=== PATIENT | female | born 1950 | race Caucasian/White ===

== ENCOUNTER 2019-03-29 09:52 | Day surgery (SDC) | payer MEDICAID, MEDICARE ==
[~2019-03-29] VITALS: Ht 177.8 cm; Wt 89.4 kg
[~2019-03-29 09:52] MED LIST: AMLO10TA5 PO; ASPI81TA21 PO; CLOP75TA2 PO; CVS1CAP2 PO; DULO30CA9 PO; HYDR50TA70 PO; LIDOCAINE 1% MDV 20ML VIAL SQ PRN; MECL1CHW PO; REME15TA2 PO; ROSU40TA3 PO; SYMB16INH INH; TEMA30CA PO; TRAM50TA2 PO; WELLTAB38 PO
[2019-03-29] MEDS ORDERED: LR 1,000 ML IV ONE (10:00)
[2019-03-29] MEDS ORDERED: SCOPOLAMINE 1MG TRANSDERMAL PATCH As Ordered ONE (13:07)
[2019-03-29] MEDS ORDERED: SCOPOLAMINE 1MG TRANSDERMAL PATCH TOP ONE (13:30)
[2019-03-29] MEDS ORDERED: fentaNYL 100 MCG/2 ML INJECTION (J3010) IV PRN (14:45)
[2019-03-29] MEDS ORDERED: LR 1,000 ML IV SCH (14:45)
[2019-03-29] MEDS ORDERED: ACETAMINOPHEN TAB 650MG DOSE (2X325MG) PO PRN (14:45)
[2019-03-29] MEDS ORDERED: ONDANSETRON 4MG/2ML VIAL (J2405) IV PRN (14:45)
--- NOTE | 2019-03-29 14:45 | RO ---
DATE OF PROCEDURE: 03/29/2019 PREPROCEDURE DIAGNOSIS: Bladder tumors. POSTPROCEDURE DIAGNOSIS: Bladder tumors. OPERATIVE PROCEDURE: Cystoscopy, transurethral resection of bladder tumors (greater than 5 cm), examination under anesthesia. SURGEON: Fredy Lee MD MIDDLE STITCHER: None. ANESTHESIA: General. 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 She was recently found to have several large bladder tumors on office cystoscopy and was brought to the operating room today for the above listed procedure. DESCRIPTION OF PROCEDURE: The patient was brought to the operating room, and general anesthesia was induced. Prophylactic antibiotics were infused. She was then placed in a dorsal lithotomy position, and a bimanual vaginal exam under anesthesia was performed. It was negative for palpable bladder masses. The bladder was freely immobile. At this point, a flex scope was inserted into the urethral meatus and advanced into the bladder using the visual obturator. The bladder was then examined. Of note, the patient had five large papillary tumors on the anterior wall, posterior wall and at the bladder base on the left. All the tumors had been resected using a loop. I made sure to resect into the muscle layer to selectively submit it for pathologic analysis. All bladder tumors were removed using the Pamela evacuator. The base of resection for each tumor was then cauterized using coagulation current. Once satisfied with hemostasis, the resectoscope was removed. I then inserted an 18-[place]oven[place] Bartholomew catheter into the bladder and the balloon was filled with 10 mL of sterile water. The catheter connected to gravity drainage, and this marked conclusion of procedure. The patient was then taken out of the dorsal lithotomy position, awakened from anesthesia, and transported to the recovery room in stable condition. ESTIMATED BLOOD LOSS: 5 mL. COMPLICATIONS: None. SPECIMENS: Bladder tumors. PLAN: The patient will followup in the clinic in approximately 1 week for catheter removal and to discuss pathology results.
[2019-03-29] MEDS ORDERED: PERCOCET 5MG/325MG TAB As Ordered ONE ×2 (15:52→16:42)
[2019-03-29] MEDS: PERCOCET 5MG/325MG TAB PO PRN ×2 (15:55→16:45)
[2019-03-29 16:55] VITALS: BP 159/78
== END 2019-03-29 17:07 | disposition home or self-care (01) ==
LOC: M SDC 09:52
PROVIDERS: ATTEND Urology
DX: C67.8 Malignant neoplasm of overlapping sites of bladder (principal); I10 Essential (primary) hypertension; E78.5 Hyperlipidemia, unspecified; F43.10 Post-traumatic stress disorder, unspecified; J44.9 Chronic obstructive pulmonary disease, unspecified; F17.210 Nicotine dependence, cigarettes, uncomplicated; Z91.040 Latex allergy status; Z91.010 Allergy to peanuts; Z79.899 Other long term (current) drug therapy
CPT/HCPCS: 52240; 88307; J0690

== ENCOUNTER 2019-05-15 07:05 | Day surgery (SDC) | payer MEDICAID, MEDICARE ==
[~2019-05-15] VITALS: Ht 177.8 cm; Wt 93.0 kg
[~2019-05-15 07:05] MED LIST changes: +LR 1,000 ML IV ONE
[2019-05-15] MEDS ORDERED: MIDAZOLAM INJ 2 MG/2 ML VIAL (J2250) As Ordered ONE (07:58)
[2019-05-15] MEDS ORDERED: fentaNYL 100 MCG/2 ML INJECTION (J3010) As Ordered ONE (07:58)
[2019-05-15] MEDS ORDERED: PROPOFOL 200 MG/20 ML VIAL As Ordered ONE (07:58)
[2019-05-15] MEDS ORDERED: LIDOCAINE 2% INJ 100 MG/5 ML SDV (FOR ANES.) As Ordered ONE (07:58)
[2019-05-15] MEDS ORDERED: SCOPOLAMINE 1MG TRANSDERMAL PATCH As Ordered ONE (08:17)
[2019-05-15] MEDS ORDERED: SCOPOLAMINE 1MG TRANSDERMAL PATCH TOP ONE (08:30)
[2019-05-15] MEDS ORDERED: ROCURONIUM BROMIDE 50 MG/5 ML VIAL As Ordered ONE (09:30)
[2019-05-15] MEDS ORDERED: hydrALAZINE INJ 20 MG/ML VIAL As Ordered ONE (09:42)
[2019-05-15] MEDS ORDERED: dexameTHASONE 4 MG/ML 1ML VIAL (J1100) As Ordered ONE (09:42)
[2019-05-15] MEDS ORDERED: SUGAMMADEX SODIUM 500 MG/5 ML VIAL (BRIDION) As Ordered ONE (10:10)
[2019-05-15] MEDS ORDERED: ONDANSETRON 4MG/2ML VIAL (J2405) As Ordered ONE (10:12)
[2019-05-15] MEDS ORDERED: ACETAMINOPHEN TAB 650MG DOSE (2X325MG) PO PRN (10:45)
[2019-05-15] MEDS ORDERED: ONDANSETRON 4MG/2ML VIAL (J2405) IV PRN (10:45)
[2019-05-15] MEDS ORDERED: MORPHINE 10 MG/ML 1ML VIAL (J2270) IV PRN (10:45)
[2019-05-15] MEDS ORDERED: LR 1,000 ML IV SCH (10:45)
[2019-05-15] MEDS ORDERED: fentaNYL 100 MCG/2 ML INJECTION (J3010) IV PRN (10:45)
[2019-05-15] MEDS: PERCOCET 5MG/325MG TAB PO PRN ×2 (12:01→12:40)
[2019-05-15] MEDS ORDERED: PERCOCET 5MG/325MG TAB As Ordered ONE ×2 (12:01→12:38)
[2019-05-15 12:05] VITALS: BP 158/80
--- NOTE | 2019-05-15 12:46 | RO ---
DATE OF PROCEDURE: 05/14/2019 PREPROCEDURE DIAGNOSIS: Bladder cancer. POSTPROCEDURE DIAGNOSIS: Bladder cancer. PROCEDURE: Cystoscopy, restaging transurethral resection of bladder tumor (between 2 and 5 cm). SURGEON: Fredy Lee MD DIRECTOR OF CODING: None. ANESTHESIA: General. OPERATIVE INDICATIONS: This is a 68-year-old female who was recently found to have non muscle invasive high grade bladder cancer on transurethral resection of bladder tumor a little over a month ago. Per routine, she was brought back to the operating room for a restaging transurethral resection of bladder tumor to confirm that there is no muscle involvement of her bladder cancer. DESCRIPTION OF PROCEDURE: Patient was brought to the operating room and general anesthesia was induced. Prophylactic antibiotics were infused. She was then placed in the dorsal lithotomy position, prepped and draped in the usual sterile fashion. A resectoscope was inserted into the urethral meatus and advanced into the bladder. The bladder was then thoroughly examined, and of note, no new tumors were seen. The only abnormality seen was scar tissue overlying the previous three areas of resection. At this point, I resected those areas once again making sure to get samples of the muscle layer in all three areas. These specimens were sent off as resection of bladder tumor base. An Sooqini evacuator was utilized to retrieve all specimens from the bladder. Once that was done, hemostasis was obtained using the coagulation current. Once satisfied with hemostasis, this marked conclusion of the procedure. An 18 [place] catheter was inserted into the bladder and the balloon was filled with 10 mL of sterile water. The catheter was connected to gravity drainage. The patient was then taken out of the dorsal lithotomy position, awakened from anesthesia, and transported to the recovery room in stable condition. ESTIMATED BLOOD LOSS: 5 mL. COMPLICATIONS: None. SPECIMENS: Resection of bladder tumor base. PLAN: The patient will follow-up in the clinic next week for catheter removal and to discuss pathology results. Assuming that there is no muscle invasion identified on this resection we will likely get her set up for intravesical BCG therapy in the office. [facility]ITALBayron
== END 2019-05-15 13:01 | disposition home or self-care (01) ==
LOC: M SDC 07:05
PROVIDERS: ATTEND Urology
DX: C67.9 Malignant neoplasm of bladder, unspecified (principal); I25.2 Old myocardial infarction; I10 Essential (primary) hypertension; J44.9 Chronic obstructive pulmonary disease, unspecified; F41.9 Anxiety disorder, unspecified; F43.10 Post-traumatic stress disorder, unspecified; F32.9 Major depressive disorder, single episode, unspecified; Z79.82 Long term (current) use of aspirin; Z79.899 Other long term (current) drug therapy
CPT/HCPCS: 52235; 88307; J0690; J1100; J2250; J2405; J3010

== ENCOUNTER → 2019-10-28 | Outpatient (REF) | payer MEDICARE ==
[~2019-10-28] MED LIST changes: -LIDOCAINE 1% MDV 20ML VIAL SQ PRN; -LR 1,000 ML IV ONE; -ROSU40TA3 PO; +ROSU40TA4 PO
== END ==
LOC: M SMT 12:41
PROVIDERS: ATTEND Urology
DX: C67.9 Malignant neoplasm of bladder, unspecified (principal)

== ENCOUNTER → 2020-01-17 | Outpatient (REF) | payer MEDICARE | LOC: M SMT 17:23 | PROVIDERS: ATTEND Urology | DX: C67.9 Malignant neoplasm of bladder, unspecified (principal) ==

== ENCOUNTER → 2020-11-30 | Outpatient (REF) | payer MEDICARE ==
[~2020-11-30] MED LIST changes: -AMLO10TA5 PO; +AMLO1TAB25 PO
== END ==
LOC: M SMT 17:14
PROVIDERS: ATTEND Urology
DX: C67.9 Malignant neoplasm of bladder, unspecified (principal)

== ENCOUNTER → 2021-03-12 | Outpatient (REF) | payer MEDICARE | LOC: M SMT 16:37 | PROVIDERS: ATTEND Urology | DX: C67.9 Malignant neoplasm of bladder, unspecified (principal) ==

== ENCOUNTER → 2021-07-05 | Outpatient (REF) | payer MEDICARE, OTHER | LOC: M SMT 19:01 | PROVIDERS: ATTEND Urology | DX: C67.9 Malignant neoplasm of bladder, unspecified (principal) ==

== ENCOUNTER → 2022-03-01 | Outpatient (REF) | payer MEDICARE, OTHER | LOC: M SMT 18:52 | PROVIDERS: ATTEND Urology | DX: C67.9 Malignant neoplasm of bladder, unspecified (principal) ==

== ENCOUNTER → 2022-09-26 | Outpatient (REF) | payer MEDICARE, OTHER | LOC: M SMT 17:30 | PROVIDERS: ATTEND Urology | DX: C67.9 Malignant neoplasm of bladder, unspecified (principal) ==

== ENCOUNTER → 2023-03-27 | Outpatient (REF) | payer MEDICARE, OTHER | LOC: M SMT 12:59 | PROVIDERS: ATTEND Urology | DX: C67.9 Malignant neoplasm of bladder, unspecified (principal) ==

== ENCOUNTER 2023-07-17 13:38 | Inpatient (IN) | payer MEDICAID, MEDICARE, OTHER ==
[2023-07-17] VITALS (11 sets, daily range): BP systolic 100–120; BP diastolic 52–64; TEMP 97.2–99.8; O2SAT 85–97
[~2023-07-17] VITALS: Ht 177.8 cm; Wt 93.8 kg
[~2023-07-17 13:38] MED LIST changes: +CURRENT HEIGHT AND WEIGHT NEEDED ON PATIENT XX SCH; +MIRT-84 PO; -REME15TA2 PO
[2023-07-17] MEDS: NS 1,000 ML IV SCH ×2 (13:55→20:04)
[2023-07-17 15:38] LABS: ABG HCO3 17.9 MMOL/L (22.0-26.0); ABG O2 SATURATION 96.3 % (95.0-99.0); ABG PARTIAL PRESSURE O2 101.2 mmHg (75.0-100.0); ABG STANDARD HCO3 18.7 MMOL/L. (22.0-26.0)
[2023-07-17] MEDS: IPRATROPIUM 0.5MG/ALBUTEROL 2.5MG INH SOL UD 3ML (DUONEB) NEB SCH ×3 (16:01→23:20)
[2023-07-17 16:02] LABS: SODIUM,RANDOM URINE 22 MMOL/L
[2023-07-17 16:04] LABS: HEMATOCRIT 30.8 % (36.0-47.0); HEMOGLOBIN 9.1 g/dl (12.0-15.5); MEAN CORPUSCULAR HEMOGLOBIN 23.5 pg (27.0-33.0); MEAN CORPUSCULAR HGB CONC 29.5 g/dl (32.0-36.5); MEAN CORPUSCULAR VOLUME 79.4 fl (80.0-96.0); PLATELET COUNT, AUTOMATED 485 10^3/uL (150-450); RED BLOOD COUNT 3.88 10^6/uL (4.00-5.40); WHITE BLOOD COUNT 17.1 10^3/uL (4.0-10.0)
[2023-07-17] MEDS ORDERED: NS 1,000 ML IV ONE ×3 (16:05→19:20)
[2023-07-17] MEDS ORDERED: BUPR300T92 PO (16:06)
[2023-07-17] MEDS ORDERED: BUPR150T12 PO (16:06)
[2023-07-17] MEDS ORDERED: ISOS1TAB35 PO (16:06)
[2023-07-17] MEDS ORDERED: ASPI-655 PO (16:06)
[2023-07-17] MEDS ORDERED: OMEP40CA5 PO (16:06)
[2023-07-17] MEDS ORDERED: VENTAER INH (16:06)
[2023-07-17] MEDS ORDERED: AMLO1TAB24 PO (16:06)
[2023-07-17] MEDS ORDERED: BENA25CA4 PO (16:06)
[2023-07-17] MEDS ORDERED: FURO20TA2 PO (16:06)
[2023-07-17] MEDS ORDERED: BUDE10.7 INH (16:06)
[2023-07-17] MEDS ORDERED: HOME MED LIST COMPLETE! XX SCH (16:10)
[2023-07-17 16:13] LABS: CREATININE,RANDOM URINE 103.8 MG/DL
[2023-07-17 16:14] LABS: ALBUMIN 1.9 G/DL (3.2-5.2); BILIRUBIN,TOTAL 0.4 MG/DL (0.3-1.2); CALCIUM LEVEL 6.6 MG/DL (8.3-10.6); CK-MB VALUE MASS 1.3 NG/ML (<3.6); CREATININE FOR GFR 4.31 MG/DL (0.55-1.30); GLOMERULAR FILTRATION RATE 10.7 (>39); MAGNESIUM LEVEL 1.9 MG/DL (1.8-2.4); MB/CK RELATIVE INDEX 3.82 (< OR =4); PHOSPHORUS LEVEL 6.9 MG/DL (2.4-5.1); POTASSIUM SERUM 4.4 MMOL/L (3.5-5.1); TOTAL PROTEIN 4.9 G/DL (5.7-8.2)
[2023-07-17] MEDS: NOREPINEPHRINE 4MG IN D5 250ML 4 MG in IV 1 EA IV SCH ×4 (16:26→20:04)
[2023-07-17 16:30] LABS: INR 1.15; PROTHROMBIN TIME 14.4 SECONDS (12.5-14.5)
[2023-07-17] MEDS ORDERED: SODIUM BICARBONATE 8.4% INJ 50ML SYRINGE IV STA (16:32)
[2023-07-17 17:03] LABS: ANISOCYTOSIS 1+; LYMPHOCYTES 4 % (16-44); METAMYELOCYTES 1 % (0-0); MYELOCYTES 1 % (0-0); NEUTROPHILS 88 % (28-66)
[2023-07-17 17:05] LABS: PLATELET ESTIMATE NORMAL (NORMAL)
[2023-07-17] MEDS: PIPERACILLIN/TAZOBACTAM SOD 2.25 GM in D5W MINI-BAG PLUS 50 ML IV SCH (17:36)
[2023-07-17 19:10] LABS: CALCIUM LEVEL 5.9 MG/DL (8.3-10.6); CREATININE FOR GFR 3.87 MG/DL (0.55-1.30); GLOMERULAR FILTRATION RATE 12.1 (>39)
[2023-07-17] MEDS ORDERED: CALCIUM CHLORIDE 10% 1 GM in D5W 100 ML IV ONE (19:30)
[2023-07-17] MEDS: metroNIDAZOLE 500 MG in IV 1 EA IV SCH (20:04)
[2023-07-17] MEDS ORDERED: CALCIUM CHLORIDE 10% 1 GM/10 ML SYR As Ordered ONE (20:05)
[2023-07-17] MEDS: HEPARIN SOD (PORCINE) 5000UNITS/ML 1ML VIAL/SYRINGE SQ SCH (23:00)
[2023-07-18] VITALS (19 sets, daily range): BP systolic 91–138; BP diastolic 49–64; TEMP 97.4–99.2; O2SAT 88–95
[2023-07-18] MEDS ORDERED: NS 1,000 ML IV ONE (02:00)
[2023-07-18] MEDS: PIPERACILLIN/TAZOBACTAM SOD 2.25 GM in D5W MINI-BAG PLUS 50 ML IV SCH ×3 (02:10→18:30)
[2023-07-18] MEDS: NOREPINEPHRINE 4MG IN D5 250ML 4 MG in IV 1 EA IV SCH ×2 (03:15)
[2023-07-18] MEDS: IPRATROPIUM 0.5MG/ALBUTEROL 2.5MG INH SOL UD 3ML (DUONEB) NEB SCH ×6 (03:28→23:09)
[2023-07-18] MEDS: NS 1,000 ML IV SCH ×3 (04:07→20:31)
[2023-07-18] MEDS: metroNIDAZOLE 500 MG in IV 1 EA IV SCH (04:09)
[2023-07-18] MEDS: HEPARIN SOD (PORCINE) 5000UNITS/ML 1ML VIAL/SYRINGE SQ SCH ×4 (06:26→21:24)
[2023-07-18 06:34] LABS: HEMATOCRIT 27.9 % (36.0-47.0); HEMOGLOBIN 8.1 g/dl (12.0-15.5); MEAN CORPUSCULAR HEMOGLOBIN 23.7 pg (27.0-33.0); MEAN CORPUSCULAR VOLUME 81.6 fl (80.0-96.0); PLATELET COUNT, AUTOMATED 426 10^3/uL (150-450); RED BLOOD COUNT 3.42 10^6/uL (4.00-5.40); WHITE BLOOD COUNT 14.4 10^3/uL (4.0-10.0)
[2023-07-18 06:53] LABS: EOSINOPHILS 1 % (0-3); LYMPHOCYTES 4 % (16-44); MONOCYTES 4 % (0-5); NEUTROPHILS 83 % (28-66)
[2023-07-18 06:54] LABS: PLATELET ESTIMATE NORMAL (NORMAL)
[2023-07-18 06:55] LABS: ANISOCYTOSIS 1+; MICROCYTOSIS 1+
[2023-07-18 06:56] LABS: HYPOCHROMASIA 1+; OVALOCYTES 1+; POIKILOCYTOSIS 1+
[2023-07-18 06:57] LABS: POLYCHROMASIA 1+
[2023-07-18 07:09] LABS: ALBUMIN 1.6 G/DL (3.2-5.2); BILIRUBIN,TOTAL 0.2 MG/DL (0.3-1.2); CALCIUM LEVEL 6.8 MG/DL (8.3-10.6); CREATININE FOR GFR 3.19 MG/DL (0.55-1.30); GLOMERULAR FILTRATION RATE 15.2 (>39); MAGNESIUM LEVEL 1.8 MG/DL (1.8-2.4); POTASSIUM SERUM 3.8 MMOL/L (3.5-5.1); TOTAL PROTEIN 4.4 G/DL (5.7-8.2)
[2023-07-18] MEDS ORDERED: CALCIUM CHLORIDE 10% 1 GM/10 ML SYR IV STA (07:24)
[2023-07-18] MEDS: TIOTROPIUM INHALER/CAPSULE (SPIRIVA) INH SCH (08:00)
[2023-07-18] MEDS: SYMBICORT 160/4.5MCG INHALER 6GM INH SCH ×3 (08:00→19:19)
[2023-07-18] MEDS ORDERED: MAG SULF 1GM/100ML (MAG RUN) 1 GM in IV 1 EA IV ONE (08:00)
[2023-07-18] MEDS: PANTOPRAZOLE 40MG VIAL IV SCH (08:59)
[2023-07-18] MEDS ORDERED: buPROPion **XL** TABLET 150MG (WELLBUTRIN XL) PO SCH ×3 (09:00)
[2023-07-18] MEDS ORDERED: ALBUTEROL 90 MCG/ACT 8GM HFA INHALER INH PRN (11:20)
[2023-07-18 11:32] LABS: FREE T4 0.78 NG/DL (0.89-1.76)
[2023-07-18 11:33] LABS: FERRITIN 132.2 NG/ML (7.3-270.7); FOLATE 4.44 NG/ML (>5.4); THYROID STIMULATING HORMONE 0.372 uIU/ML (0.55-4.78)
[2023-07-18 12:16] LABS: APPEARANCE, URINE HAZY (CLEAR); BACTERIA, URINE AUTO NEGATIVE (NEGATIVE); BILIRUBIN, URINE AUTO NEGATIVE (NEGATIVE); BLOOD, URINE BLOOD NEGATIVE (NEGATIVE); COLOR, URINE YELLOW (YELLOW); GLUCOSE, URINE (UA) AUTO NEGATIVE (NEGATIVE); GRANULAR CAST, URINE AUTO 4 /LPF; KETONE, URINE AUTO NEGATIVE (NEGATIVE); LEUKOCYTE ESTERASE, URINE AUTO NEGATIVE (NEGATIVE); MUCUS, URINE SMALL (NEGATIVE); NITRITE, URINE AUTO NEGATIVE (NEGATIVE); PROTEIN, URINE AUTO 1+ mg/dL (NEGATIVE); RBC, URINE AUTO 2 /HPF (0-3); SPECIFIC GRAVITY URINE AUTO 1.016 (1.002-1.035); SQUAMOUS EPITHELIAL CELL UR AU 0 /HPF (0-6); UROBILINOGEN, URINE AUTO 0.2 mg/dL (0.0-2.0); WBC, URINE AUTO 2 /HPF (0-3)
[2023-07-18 12:18] LABS: CREATININE,RANDOM URINE 83.6 MG/DL
[2023-07-18] MEDS: DULoxetine 30MG CAPSULE (CYMBALTA) PO SCH ×3 (13:06→21:11)
[2023-07-18] MEDS: DOXYCYCLINE HYCLATE 100MG TABLET PO SCH ×3 (13:06→21:11)
[2023-07-18] MEDS: ASPIRIN 81MG CHEW TABLET PO SCH (13:06)
[2023-07-18] MEDS: ROSUVASTATIN 10 MG TAB (CRESTOR) PO SCH ×2 (21:00→21:11)
[2023-07-19] VITALS: BP 120/56; TEMP 97.8; O2SAT 92
[2023-07-19] MEDS: PIPERACILLIN/TAZOBACTAM SOD 2.25 GM in D5W MINI-BAG PLUS 50 ML IV SCH ×2 (02:34→10:05)
[2023-07-19] MEDS: IPRATROPIUM 0.5MG/ALBUTEROL 2.5MG INH SOL UD 3ML (DUONEB) NEB SCH ×4 (03:11→15:21)
[2023-07-19 04:00] VITALS: BP 109/55; TEMP 97.7; O2SAT 91
[2023-07-19 04:58] LABS: BASO % 0.2 % (0.0-1.0); EOS # 0.1 10^3/uL (0.0-0.5); EOS % 0.6 % (0.0-3.0); HEMOGLOBIN 8.9 g/dl (12.0-15.5); LYMPH # 1.4 10^3/uL (1.5-5.0); LYMPH % 11.2 % (24.0-44.0); MEAN CORPUSCULAR HGB CONC 28.7 g/dl (32.0-36.5); MEAN CORPUSCULAR VOLUME 83.6 fl (80.0-96.0); MONO # 0.9 10^3/uL (0.0-0.8); MONO % 7.6 % (2.0-8.0); NEUTROPHILS # 9.6 10^3/uL (1.5-8.5); NEUTROPHILS % 78.8 % (36.0-66.0); PLATELET COUNT, AUTOMATED 408 10^3/uL (150-450); RED BLOOD COUNT 3.71 10^6/uL (4.00-5.40); WHITE BLOOD COUNT 12.2 10^3/uL (4.0-10.0)
[2023-07-19 06:12] LABS: CALCIUM LEVEL 7.8 MG/DL (8.3-10.6); CREATININE FOR GFR 2.16 MG/DL (0.55-1.30); GLOMERULAR FILTRATION RATE 23.8 (>39); MAGNESIUM LEVEL 1.9 MG/DL (1.8-2.4); POTASSIUM SERUM 3.4 MMOL/L (3.5-5.1)
[2023-07-19] MEDS: HEPARIN SOD (PORCINE) 5000UNITS/ML 1ML VIAL/SYRINGE SQ SCH ×3 (06:18→22:49)
[2023-07-19] MEDS: NS 1,000 ML IV SCH (06:18)
[2023-07-19] MEDS: SYMBICORT 160/4.5MCG INHALER 6GM INH SCH ×2 (07:16→20:14)
[2023-07-19] MEDS: TIOTROPIUM INHALER/CAPSULE (SPIRIVA) INH SCH (07:16)
[2023-07-19] MEDS: DOXYCYCLINE HYCLATE 100MG TABLET PO SCH ×2 (08:39→20:26)
[2023-07-19 08:40] VITALS: BP 113/57; TEMP 97.7; O2SAT 96
[2023-07-19] MEDS: DULoxetine 30MG CAPSULE (CYMBALTA) PO SCH ×2 (08:40→20:26)
[2023-07-19] MEDS: PANTOPRAZOLE 40MG VIAL IV SCH (08:40)
[2023-07-19] MEDS: ASPIRIN 81MG CHEW TABLET PO SCH (08:40)
[2023-07-19 08:51] LABS: ALBUMIN 1.7 G/DL (3.2-5.2)
[2023-07-19] MEDS: KCL 20MEQ IN 0.45NS 1000ML 1,000 ML IV SCH ×2 (10:04→20:25)
[2023-07-19] MEDS ORDERED: DEXTROSE 50% 50ML SYRINGE IV PRN (10:20)
[2023-07-19] MEDS ORDERED: GLUCAGON INJ 1MG VIAL SC PRN (10:20)
[2023-07-19] MEDS ORDERED: GLUCOSE 4GM CHEW TABLET PO PRN (10:20)
[2023-07-19] MEDS ORDERED: ALBUTEROL 90 MCG/ACT 8GM HFA INHALER INH PRN (10:30)
[2023-07-19] MEDS ORDERED: FERRIC CARBOXYMALTOSE INJ 750 MG, VIAL MATE ADAPTER 1 EACH in NS 250 ML IV ONE (14:00)
[2023-07-19 16:14] VITALS: BP 130/71; TEMP 97.4; O2SAT 93
[2023-07-19] MEDS: PIPERACILLIN/TAZOBACTAM SOD 3.375 GM in D5W MINI-BAG PLUS 50 ML IV SCH ×2 (16:17→22:49)
[2023-07-19 20:00] VITALS: BP 128/57; TEMP 97.7; O2SAT 93
[2023-07-19] MEDS: ROSUVASTATIN 10 MG TAB (CRESTOR) PO SCH (20:26)
[2023-07-19 21:46] VITALS: BP 143/67; TEMP 96.2; O2SAT 91
[2023-07-20] MEDS: PIPERACILLIN/TAZOBACTAM SOD 3.375 GM in D5W MINI-BAG PLUS 50 ML IV SCH (04:50)
[2023-07-20] MEDS: KCL 20MEQ IN 0.45NS 1000ML 1,000 ML IV SCH (05:51)
[2023-07-20] MEDS: HEPARIN SOD (PORCINE) 5000UNITS/ML 1ML VIAL/SYRINGE SQ SCH ×3 (05:51→21:11)
[2023-07-20 06:48] VITALS: BP 129/72; TEMP 97.4; O2SAT 90; O2SAT 95
[2023-07-20 06:58] LABS: HEMATOCRIT 33.6 % (36.0-47.0); HEMOGLOBIN 9.7 g/dl (12.0-15.5); MEAN CORPUSCULAR HEMOGLOBIN 23.3 pg (27.0-33.0); MEAN CORPUSCULAR HGB CONC 28.9 g/dl (32.0-36.5); MEAN CORPUSCULAR VOLUME 80.6 fl (80.0-96.0); PLATELET COUNT, AUTOMATED 444 10^3/uL (150-450); RED BLOOD COUNT 4.17 10^6/uL (4.00-5.40); WHITE BLOOD COUNT 15.6 10^3/uL (4.0-10.0)
[2023-07-20] MEDS: IPRATROPIUM 0.5MG/ALBUTEROL 2.5MG INH SOL UD 3ML (DUONEB) NEB SCH ×3 (07:18→15:27)
[2023-07-20] MEDS: SYMBICORT 160/4.5MCG INHALER 6GM INH SCH ×2 (07:18→19:31)
[2023-07-20 07:29] LABS: CALCIUM LEVEL 7.6 MG/DL (8.3-10.6); CREATININE FOR GFR 1.24 MG/DL (0.55-1.30); GLOMERULAR FILTRATION RATE 45.1 (>39); MAGNESIUM LEVEL 1.5 MG/DL (1.8-2.4); POTASSIUM SERUM 3.7 MMOL/L (3.5-5.1)
[2023-07-20 07:52] LABS: ATYPICAL LYMPH 2 % (0-5); EOSINOPHILS 1 % (0-3); LYMPHOCYTES 9 % (16-44); MONOCYTES 6 % (0-5); NEUTROPHILS 82 % (28-66)
[2023-07-20 07:53] LABS: PLATELET ESTIMATE INCREASED (NORMAL)
[2023-07-20] MEDS: MAG SULF 1GM/100ML (MAG RUN) 1 GM in IV 1 EA IV SCH ×3 (09:32→13:00)
[2023-07-20] MEDS: ASPIRIN 81MG CHEW TABLET PO SCH (09:33)
[2023-07-20] MEDS: PANTOPRAZOLE 40MG VIAL IV SCH (09:33)
[2023-07-20] MEDS: DOXYCYCLINE HYCLATE 100MG TABLET PO SCH ×2 (09:33→20:45)
[2023-07-20] MEDS: DULoxetine 30MG CAPSULE (CYMBALTA) PO SCH ×2 (09:33→20:44)
[2023-07-20] MEDS: PIPERACILLIN/TAZOBACTAM SOD 4.5 GM in D5W MINI-BAG PLUS 50 ML IV SCH ×3 (11:42→21:11)
[2023-07-20] MEDS: TIOTROPIUM INHALER/CAPSULE (SPIRIVA) INH SCH (11:48)
[2023-07-20 14:00] VITALS: BP 163/77; TEMP 98.4; O2SAT 93
[2023-07-20] MEDS: POTASSIUM CHLORIDE 10MEQ SR TABLET PO SCH (16:18)
[2023-07-20] MEDS: FOLIC ACID 1MG TAB PO SCH (16:18)
[2023-07-20 20:00] VITALS: BP 118/58; TEMP 97.7; O2SAT 91
[2023-07-20] MEDS: ROSUVASTATIN 10 MG TAB (CRESTOR) PO SCH (20:44)
[2023-07-20] MEDS: amLODIPine 5 MG TAB PO SCH (20:44)
[2023-07-20] MEDS: ISOSORBIDE MON. (IMDUR) 30MG XR TAB PO SCH (20:45)
[2023-07-21] MEDS: PIPERACILLIN/TAZOBACTAM SOD 4.5 GM in D5W MINI-BAG PLUS 50 ML IV SCH ×2 (04:23→11:23)
[2023-07-21] MEDS: HEPARIN SOD (PORCINE) 5000UNITS/ML 1ML VIAL/SYRINGE SQ SCH ×3 (05:51→20:52)
[2023-07-21 05:55] VITALS: BP 117/61; TEMP 98.3; O2SAT 93
[2023-07-21 06:50] LABS: HEMATOCRIT 30.1 % (36.0-47.0); HEMOGLOBIN 8.7 g/dl (12.0-15.5); MEAN CORPUSCULAR HEMOGLOBIN 23.4 pg (27.0-33.0); MEAN CORPUSCULAR HGB CONC 28.9 g/dl (32.0-36.5); MEAN CORPUSCULAR VOLUME 80.9 fl (80.0-96.0); PLATELET COUNT, AUTOMATED 378 10^3/uL (150-450); RED BLOOD COUNT 3.72 10^6/uL (4.00-5.40); WHITE BLOOD COUNT 14.1 10^3/uL (4.0-10.0)
[2023-07-21] MEDS: IPRATROPIUM 0.5MG/ALBUTEROL 2.5MG INH SOL UD 3ML (DUONEB) NEB SCH ×3 (07:24→15:24)
[2023-07-21] MEDS: SYMBICORT 160/4.5MCG INHALER 6GM INH SCH ×2 (07:24→19:09)
[2023-07-21] MEDS: TIOTROPIUM INHALER/CAPSULE (SPIRIVA) INH SCH (07:24)
[2023-07-21 07:26] LABS: EOSINOPHILS 2 % (0-3); LYMPHOCYTES 13 % (16-44); MONOCYTES 5 % (0-5); MYELOCYTES 4 % (0-0); NEUTROPHILS 76 % (28-66)
[2023-07-21 07:27] LABS: ANISOCYTOSIS 2+; CALCIUM LEVEL 7.4 MG/DL (8.3-10.6); CREATININE FOR GFR 1.11 MG/DL (0.55-1.30); GLOMERULAR FILTRATION RATE 51.3 (>39); HYPOCHROMASIA 2+; MAGNESIUM LEVEL 1.6 MG/DL (1.8-2.4); OVALOCYTES 1+; PLATELET ESTIMATE NORMAL (NORMAL); POTASSIUM SERUM 3.2 MMOL/L (3.5-5.1)
[2023-07-21] MEDS ORDERED: KCL 10MEQ/100ML SWI (KRUN) 10 MEQ in IV 1 EA IV SCH (08:00)
[2023-07-21] MEDS: buPROPion **XL** TABLET 150MG (WELLBUTRIN XL) PO SCH (08:54)
[2023-07-21] MEDS: POTASSIUM CHLORIDE 10MEQ SR TABLET PO SCH (08:55)
[2023-07-21] MEDS: DOXYCYCLINE HYCLATE 100MG TABLET PO SCH (08:55)
[2023-07-21] MEDS: amLODIPine 5 MG TAB PO SCH ×2 (08:55→20:49)
[2023-07-21] MEDS: FOLIC ACID 1MG TAB PO SCH (08:55)
[2023-07-21] MEDS: ASPIRIN 81MG CHEW TABLET PO SCH (08:55)
[2023-07-21] MEDS: OMEPRAZOLE 20MG CAP PO SCH (08:55)
[2023-07-21] MEDS: DULoxetine 30MG CAPSULE (CYMBALTA) PO SCH ×2 (08:56→20:48)
[2023-07-21] MEDS: MAG SULF 1GM/100ML (MAG RUN) 1 GM in IV 1 EA IV SCH ×3 (08:56→14:01)
[2023-07-21] MEDS ORDERED: ACETAMINOPHEN 500 MG TAB PO ONE (09:55)
[2023-07-21] MEDS ORDERED: POTASSIUM CHLORIDE 10MEQ SR TABLET PO ONE ×2 (12:00→21:00)
[2023-07-21] MEDS ORDERED: MAG SULF 1GM/100ML (MAG RUN) 1 GM in IV 1 EA IV SCH (13:30)
[2023-07-21 14:09] VITALS: BP 142/75; TEMP 96.9; O2SAT 94
[2023-07-21] MEDS: KCL 10MEQ/100ML SWI (KRUN) 10 MEQ in IV 1 EA IV SCH ×4 (15:15→16:15)
[2023-07-21] MEDS: LevoFLOXacin 750 MG TABLET PO SCH (15:19)
[2023-07-21 18:02] LABS: POTASSIUM SERUM 3.4 MMOL/L (3.5-5.1)
[2023-07-21] MEDS ORDERED: POTASSIUM CHLORIDE 10% LIQ 20MEQ/15ML UDC PO ONE (19:20)
[2023-07-21 20:00] VITALS: BP 147/70; TEMP 98.7; O2SAT 93
[2023-07-21] MEDS: ROSUVASTATIN 10 MG TAB (CRESTOR) PO SCH (20:48)
[2023-07-21] MEDS: ISOSORBIDE MON. (IMDUR) 30MG XR TAB PO SCH (20:49)
[2023-07-22] MEDS: IPRATROPIUM 0.5MG/ALBUTEROL 2.5MG INH SOL UD 3ML (DUONEB) NEB SCH ×2 (00:50→08:16)
[2023-07-22] MEDS: HEPARIN SOD (PORCINE) 5000UNITS/ML 1ML VIAL/SYRINGE SQ SCH ×2 (05:20→14:00)
[2023-07-22] MEDS: LevoFLOXacin 750 MG TABLET PO SCH (05:20)
[2023-07-22 06:00] VITALS: BP 134/64; TEMP 98.2; O2SAT 93
[2023-07-22 07:10] LABS: HEMATOCRIT 32.5 % (36.0-47.0); HEMOGLOBIN 9.6 g/dl (12.0-15.5); MEAN CORPUSCULAR HEMOGLOBIN 24.1 pg (27.0-33.0); MEAN CORPUSCULAR HGB CONC 29.5 g/dl (32.0-36.5); MEAN CORPUSCULAR VOLUME 81.5 fl (80.0-96.0); PLATELET COUNT, AUTOMATED 363 10^3/uL (150-450); RED BLOOD COUNT 3.99 10^6/uL (4.00-5.40); WHITE BLOOD COUNT 14.3 10^3/uL (4.0-10.0)
[2023-07-22 07:32] LABS: ANISOCYTOSIS 2+; ATYPICAL LYMPH 4 % (0-5); EOSINOPHILS 1 % (0-3); LYMPHOCYTES 16 % (16-44); MONOCYTES 4 % (0-5); MYELOCYTES 1 % (0-0); NEUTROPHILS 74 % (28-66); OVALOCYTES 1+; PLATELET ESTIMATE NORMAL (NORMAL); POIKILOCYTOSIS 1+
[2023-07-22 07:33] LABS: POLYCHROMASIA 1+; SCHISTOCYTES 1+
[2023-07-22 07:37] LABS: BLOOD UREA NITROGEN 11 MG/DL (9-23); CALCIUM LEVEL 7.7 MG/DL (8.3-10.6); CARBON DIOXIDE LEVEL 25 MMOL/L (20-31); CHLORIDE LEVEL 110 MMOL/L (98-107); CREATININE FOR GFR 0.96 MG/DL (0.55-1.30); GLOMERULAR FILTRATION RATE > 60.0 (>39); GLUCOSE, FASTING 73 MG/DL (74-106); POTASSIUM SERUM 3.1 MMOL/L (3.5-5.1); SODIUM LEVEL 144 MMOL/L (136-145)
[2023-07-22] MEDS: TIOTROPIUM INHALER/CAPSULE (SPIRIVA) INH SCH (08:16)
[2023-07-22] MEDS: SYMBICORT 160/4.5MCG INHALER 6GM INH SCH (08:16)
[2023-07-22] MEDS ORDERED: POTASSIUM CHLORIDE 10MEQ SR TABLET PO SCH (09:00)
[2023-07-22] MEDS ORDERED: POTASSIUM CHLORIDE 10MEQ SR TABLET PO ONE (09:00)
[2023-07-22 09:54] LABS: MAGNESIUM LEVEL 1.8 MG/DL (1.8-2.4)
[2023-07-22] MEDS: ASPIRIN 81MG CHEW TABLET PO SCH (10:06)
[2023-07-22] MEDS: DULoxetine 30MG CAPSULE (CYMBALTA) PO SCH (10:06)
[2023-07-22] MEDS: OMEPRAZOLE 20MG CAP PO SCH (10:06)
[2023-07-22] MEDS: buPROPion **XL** TABLET 150MG (WELLBUTRIN XL) PO SCH (10:06)
[2023-07-22] MEDS: FOLIC ACID 1MG TAB PO SCH (10:06)
[2023-07-22 10:10] VITALS: BP 137/64
[2023-07-22] MEDS: amLODIPine 5 MG TAB PO SCH (10:10)
[2023-07-22] MEDS ORDERED: POTA-151 PO (10:35)
[2023-07-22] MEDS ORDERED: PROBCAP14 PO (10:35)
[2023-07-22] MEDS ORDERED: DOXY-444 PO (10:35)
[2023-07-22] MEDS ORDERED: AMOX875T2 PO (10:35)
== END 2023-07-22 14:57 | disposition home or self-care (01) | DRG 871 ==
LOC: M ICU 15:11 → M MS4PR 07-19 21:30
PROVIDERS: ADMIT Internal Medicine Critical Care Medicine; ATTEND Internal Medicine
DX: A41.9 Sepsis, unspecified organism (principal); J18.9 Pneumonia, unspecified organism; J96.21 Acute and chronic respiratory failure with hypoxia; N17.9 Acute kidney failure, unspecified; K56.609 Unspecified intestinal obstruction, unspecified as to partial versus complete obstruction; E87.0 Hyperosmolality and hypernatremia; J44.0 Chronic obstructive pulmonary disease with (acute) lower respiratory infection; E87.20 Acidosis, unspecified; I12.9 Hypertensive chronic kidney disease with stage 1 through stage 4 chronic kidney disease, or unspecified chronic kidney disease; F32.A Depression, unspecified; K21.9 Gastro-esophageal reflux disease without esophagitis; D50.9 Iron deficiency anemia, unspecified; N18.30 Chronic kidney disease, stage 3 unspecified; E78.5 Hyperlipidemia, unspecified; E87.6 Hypokalemia; D63.1 Anemia in chronic kidney disease; R19.7 Diarrhea, unspecified; F41.9 Anxiety disorder, unspecified; Z66 Do not resuscitate; E83.42 Hypomagnesemia; G89.29 Other chronic pain; M54.9 Dorsalgia, unspecified; R91.8 Other nonspecific abnormal finding of lung field; G47.30 Sleep apnea, unspecified; I71.40 Abdominal aortic aneurysm, without rupture, unspecified; I25.2 Old myocardial infarction; Z85.528 Personal history of other malignant neoplasm of kidney; Z90.5 Acquired absence of kidney; Z99.81 Dependence on supplemental oxygen; Z79.82 Long term (current) use of aspirin; Z79.899 Other long term (current) drug therapy; Z91.018 Allergy to other foods; Z91.010 Allergy to peanuts; Z91.048 Other nonmedicinal substance allergy status; Z87.891 Personal history of nicotine dependence

== ENCOUNTER → 2023-12-05 | Outpatient (REF) | payer OTHER, MEDICAID ==
[~2023-12-05] MED LIST changes: +AMLO1TAB24 PO; +AMOX875T2 PO; +ASPI-655 PO; +BENA25CA4 PO; +BUDE10.7 INH; +BUPR150T12 PO; +BUPR300T92 PO; -CURRENT HEIGHT AND WEIGHT NEEDED ON PATIENT XX SCH; +DOXY-444 PO; +FURO20TA2 PO; +ISOS1TAB35 PO; +OMEP40CA5 PO; +POTA-151 PO; +PROBCAP14 PO; +VENTAER INH
== END ==
LOC: M SMT 13:52
PROVIDERS: ATTEND Urology
DX: C67.9 Malignant neoplasm of bladder, unspecified (principal)

== ENCOUNTER → 2024-06-28 | Outpatient (REF) | payer OTHER, MEDICAID ==
[~2024-06-28] MED LIST changes: +BUPR-597 PO; -BUPR300T92 PO; +DOXY-440 PO; -DOXY-444 PO; -ROSU40TA4 PO; +ROSU40TA63 PO
== END ==
LOC: M SMT 17:35
PROVIDERS: ATTEND Urology
DX: C67.9 Malignant neoplasm of bladder, unspecified (principal)